=== PATIENT | female | born 1970 | race American Indian/Alaskan Native ===

== ENCOUNTER 2017-06-13 11:00 | Emergency (ER) | payer OTHER ==
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
[2017-06-13 12:26] VITALS: BP 125/80
== END 2017-06-13 12:12 | disposition home or self-care (01) ==
LOC: ED 11:00
DX: S39.012A Strain of muscle, fascia and tendon of lower back, initial encounter (principal); M79.602 Pain in left arm; F12.10 Cannabis abuse, uncomplicated; V49.49XA Driver injured in collision with other motor vehicles in traffic accident, initial encounter; Y93.89 Activity, other specified; Y92.89 Other specified places as the place of occurrence of the external cause; Y99.8 Other external cause status
CPT/HCPCS: 99282

== ENCOUNTER 2017-12-30 10:28 | Emergency (ER) | payer BC, OTHER ==
[2017-12-30 10:39] VITALS: BP 143/88
[2017-12-30 11:27] LABS: Alanine Aminotransferase 14 units/L (7-56); Albumin 3.9 g/dL (3.9-5); BUN/Creatinine Ratio 9; Blood Urea Nitrogen 6 mg/dL (7-17); Calcium 8.7 mg/dL (8.4-10.2); Hemolysis Index 0; Lipase 25 units/L (13-60)
[2017-12-30 11:31] LABS: Basophils % (Auto) 0.4 % (0.0-1.8); Eosinophils # (Auto) 0.1 K/mm3 (0.0-0.4); Eosinophils % (Auto) 1.1 % (0.0-4.3); Hematocrit 28.2 % (30.3-42.9); Hemoglobin 9.2 gm/dl (10.1-14.3); Lymphocytes # (Auto) 0.5 K/mm3 (1.2-5.4); Lymphocytes % (Auto) 6.2 % (13.4-35.0); Mean Corpuscular HGB Conc 33 % (30-34); Mean Corpuscular Volume 74 fl (79-97); Monocytes # (Auto) 0.9 K/mm3 (0.0-0.8); Monocytes % (Auto) 11.6 % (0.0-7.3); Platelet Count 387 K/mm3 (140-440); Red Blood Count 3.81 M/mm3 (3.65-5.03)
[2017-12-30 11:32] LABS: Mean Corpuscular Hemoglobin 24 pg (28-32)
[2017-12-30 12:11] LABS: Bacteria,Urine 1+ /HPF (Negative); Bilirubin,Urine NEG (Negative); Blood,Urine NEG (Negative); Color,Urine Yellow (Yellow); Mucus,Urine 1+ /HPF; Protein,Urine <15 mg/dL mg/dL (Negative); Urobilinogen,Urine < 2.0 mg/dL (<2.0)
[2017-12-30 12:17] LABS: HCG Qualitative,Urine Negative (Negative)
[2017-12-30] MEDS ORDERED: TORADOL IM ONE (13:16)
--- NOTE | 2017-12-30 13:21 | Emergency Department Report ---
ED Abdominal Pain HPI - General Chief Complaint: Nausea/Vomiting/Diarrhea Stated Complaint: VOMITING Time Seen by Provider: 12/30/17 12:46 Source: patient Mode of arrival: Ambulatory Limitations: No Limitations - History of Present Illness Initial Comments: Patient is 47 years old female with no significant past medical history. Patient presented to the ER complaining of generalized abdominal pain, crampy in nature associated with his nausea vomiting and watery diarrhea. Pain is also associated his generalized body ache and low grade fever. She denied any chest pain or shortness of breath. MD Complaint: abdominal pain -: days(s) Location: diffuse Radiation: none Migration to: no migration Severity scale (0 -10): 4 Quality: cramping Consistency: constant Associated Symptoms: nausea, vomiting, diarrhea, fever - Related Data Previous Rx's Medication Instructions Recorded Last Taken Type Cyclobenzaprine [Flexeril] 10 mg PO TID PRN #12 tablet 06/13/17 Unknown Rx Naproxen 500 mg PO Q12H PRN #30 tablet 06/13/17 Unknown Rx Allergies Allergy/AdvReac Type Severity Reaction Status Date / Time No Known Allergies Allergy Unverified 06/13/17 11:11 ED Review of Systems ROS: Stated complaint: VOMITING Other details as noted in HPI Comment: All other systems reviewed and negative Constitutional: fever, malaise. denies: chills Respiratory: denies: cough, orthopnea, shortness of breath, SOB with exertion, SOB at rest, stridor, wheezing Cardiovascular: denies: chest pain, palpitations, dyspnea on exertion, orthopnea , edema, syncope, paroxysmal nocturnal dyspnea Gastrointestinal: nausea, vomiting, diarrhea. denies: abdominal pain, hematemesis, melena, hematochezia Genitourinary: denies: urgency, dysuria, frequency, hematuria, discharge, abnormal menses Skin: denies: rash Neurological: denies: headache, weakness, numbness, paresthesias, confusion, abnormal gait ED Past Medical Hx - Past Medical History Previous Medical History?: No - Surgical History Past Surgical History?: Yes Additional Surgical History: Cervical cerclage x 2 - Social History Smoking Status: Never Smoker Substance Use Type: Alcohol, Marijuana - Medications Home Medications: Home Medications Medication Instructions Recorded Confirmed Last Taken Type Cyclobenzaprine [Flexeril] 10 mg PO TID PRN #12 tablet 06/13/17 Unknown Rx Naproxen 500 mg PO Q12H PRN #30 tablet 06/13/17 Unknown Rx ED Physical Exam - General Limitations: No Limitations General appearance: alert, in no apparent distress - Head Head exam: Present: atraumatic, normocephalic, normal inspection - Eye Eye exam: Present: normal appearance - ENT ENT exam: Present: normal exam, normal orophraynx, mucous membranes moist - Neck Neck exam: Present: normal inspection - Respiratory Respiratory exam: Present: normal lung sounds bilaterally. Absent: respiratory distress, wheezes, rales, rhonchi, stridor, accessory muscle use, decreased breath sounds, prolonged expiratory - Cardiovascular Cardiovascular Exam: Present: regular rate, normal rhythm, normal heart sounds - GI/Abdominal GI/Abdominal exam: Present: soft, normal bowel sounds. Absent: distended, tenderness, guarding, rebound, rigid, organomegaly, mass, bruit, pulsatile mass , hernia - Extremities Exam Extremities exam: Present: normal inspection, full ROM, normal capillary refill - Back Exam Back exam: Present: normal inspection, full ROM. Absent: tenderness, CVA tenderness (R), CVA tenderness (L), muscle spasm, paraspinal tenderness, vertebral tenderness - Neurological Exam Neurological exam: Present: alert, oriented X3, CN II-XII intact, normal gait - Skin Skin exam: Present: warm, intact, normal color ED Course Vital Signs 12/30/17 10:34 Temperature 99.7 F H Pulse Rate 105 H Respiratory 20 Rate Blood Pressure 143/88 O2 Sat by Pulse 96 Oximetry ED Medical Decision Making - Lab Data Result diagrams: 12/30/17 10:59 12/30/17 10:58 Critical care attestation.: If time is entered above; I have spent that time in minutes in the direct care of this critically ill patient, excluding procedure time. ED Disposition Clinical Impression: Abdominal pain, Viral syndrome Disposition: - TO HOME OR SELFCARE Is pt being admited?: No Condition: Stable Instructions: Abdominal Pain (ED), Viral Syndrome (ED) Referrals: PRIMARY CARE,MD [Primary Care Provider] - 3-5 Days
== END 2017-12-30 13:39 | disposition home or self-care (01) ==
LOC: ED 10:28
DX: B34.9 Viral infection, unspecified (principal); Z79.899 Other long term (current) drug therapy; F12.10 Cannabis abuse, uncomplicated
CPT/HCPCS: 36415; 80053; 81001; 81025; 83690; 85025; 96372; 99283; J1885

== ENCOUNTER 2019-07-08 12:21 | Emergency (ER) | payer BC, OTHER ==
[2019-07-08] MEDS ORDERED: KETAMINE 500 MG/5 ML VIAL MDV IV ONE (12:50)
[2019-07-08] MEDS ORDERED: SODIUM CHLORIDE 0.9% 1000 ML 1,000 ML IV ONE (12:53)
--- NOTE | 2019-07-08 12:53 | Emergency Department Report ---
HPI - General Chief Complaint: Extremity Injury, Upper Time Seen by Provider: 07/08/19 12:39 - HPI HPI: 49-year-old -[place] female presents to the emergency department with complaint of left shoulder pain and suspicion for a shoulder dislocation after falling down a few stairs and catching herself with her left arm. She denies hitting her head or any loss of consciousness. She does have a history of previous left shoulder dislocation but it is been greater than 10 years. Otherwise she denies any past medical history. She has not taken anything for her symptoms prior to arrival today. ED Past Medical Hx - Past Medical History Previous Medical History?: No - Surgical History Past Surgical History?: Yes Additional Surgical History: Cervical cerclage x 2 - Social History Smoking Status: Never Smoker Substance Use Type: Alcohol, Marijuana - Medications Home Medications: Home Medications Medication Instructions Recorded Confirmed Last Taken Type Cyclobenzaprine [Flexeril] 10 mg PO TID PRN #12 tablet 06/13/17 Unknown Rx Naproxen 500 mg PO Q12H PRN #30 tablet 06/13/17 Unknown Rx Ketorolac [Toradol] 10 mg PO Q6H PRN #20 tablet 12/30/17 Unknown Rx Ondansetron [Zofran Odt] 4 mg PO Q8HR PRN #14 tab.rapdis 12/30/17 Unknown Rx ED Review of Systems ROS: Stated complaint: FALL INJURY/LFT ARM PAIN Other details as noted in HPI Comment: All other systems reviewed and negative Constitutional: denies: chills, fever Respiratory: denies: shortness of breath Cardiovascular: denies: chest pain Gastrointestinal: denies: abdominal pain Musculoskeletal: arthralgia. denies: back pain Neurological: denies: headache, numbness, paresthesias Physical Exam - Physical Exam Vital Signs: Vital Signs 07/08/19 12:26 Temperature 98.3 F Pulse Rate 76 Respiratory 18 Rate Blood Pressure 171/78 [Left] O2 Sat by Pulse 98 Oximetry Physical Exam: GENERAL: The patient is well-developed well-nourished. HENT: Normocephalic. Atraumatic. Patient has moist mucous membranes. EYES: Extraocular motions are intact. NECK: Supple. Trachea is midline. CHEST/LUNGS: Clear to auscultation. There is no respiratory distress noted. HEART/CARDIOVASCULAR: Regular. There is no tachycardia. There is no murmur. ABDOMEN: Abdomen is soft, nontender. Patient has normal bowel sounds. SKIN: Skin is warm and dry. NEURO: The patient is awake, alert, and oriented. The patient is cooperative. The patient has no focal neurologic deficits. Normal speech. MUSCULOSKELETAL: Patient is holding her left upper extremity in internal rotation against her body. There is tenderness to palpation to the left shoulder. Decreased range of motion secondary to pain and suspected dislocation. Radial pulse +2 over 4 to the affected left upper extremity. ED Course Vital Signs 07/08/19 12:26 Temperature 98.3 F Pulse Rate 76 Respiratory 18 Rate Blood Pressure 171/78 [Left] O2 Sat by Pulse 98 Oximetry - Moderate Sedation Indications: fracture/dislocation redu Mallampati Airway Score: 1 Time of Last PO Intake: 21:00 (last night) Preparation: monitor worker applied, pulse oximeter, capnometry used, supplemental O2 applied, suction/airway equipment at bedside, IV secured Ketamine: IV Ketamine Dose: 50 IV Propofol Dose (mgs): 30 Complications: none Patient Tolerated Procedure: well - Orthopedic Joint Reduction Joint #1 Consent Obtained: written consent Time Out Performed: Yes Side: left Joint Reduction Location: shoulder Analgesia: moderate sedation Shoulder Technique Used (if applicable): external rotation Post-Reduction Neuro Exam: intact Post-Reduction Vascular Exam: intact Post Reduction X-Ray Obtained: Yes Post Reduction X-Ray Results: reduced Splint Applied: Yes Patient Tolerated Procedure: well ED Medical Decision Making - Radiology Data Radiology results: image reviewed interpreted by me: The initial left shoulder x-ray shows a dislocation without appears to be anterior and inferior and was read by radiology as subcoracoid. Postreduction x-ray of the left shoulder shows appropriate reduction of the left humeral head into the glenohumeral joint - Medical Decision Making Patient presents to the emergency department with a left shoulder dislocation. She is neurovascularly intact. X-ray confirms a anterior dislocation. An IV was placed and the patient was placed on cardiac monitoring. We discussed moderate sedation and reduction procedures. Patient was given ketamine and propofol and there was appropriate reduction with confirmation by a second x-ray. She is still neurovascularly intact after the procedure is completed. Patient remained in the emergency department until she had completely come out of the sedation and is back at her baseline mental status. She is in a shoulder immobilizer and has been instructed to remain there until follow-up with an orthopedist. She will return to the emergency Department with any worsening of her symptoms or any acute distress. - Differential Diagnosis dislocation, fracture, sprain, rotator cuff injury Critical Care Time: No Critical care attestation.: If time is entered above; I have spent that time in minutes in the direct care of this critically ill patient, excluding procedure time. ED Disposition Clinical Impression: Dislocation, shoulder closed Qualifiers: Encounter type: initial encounter Laterality: left Qualified Code(s): S43.005A - Unspecified dislocation of left shoulder joint, initial encounter Disposition: TO HOME OR SELFCARE Is pt being admited?: No Condition: Stable Instructions: Shoulder Dislocation (ED), Moderate Sedation (ED) Additional Instructions: Please follow-up with an orthopedist regarding your shoulder dislocation. Remain in the shoulder immobilizer until follow-up with the orthopedist. I'm giving you a referral for 2 local orthopedic groups, Dr. Devlin and [facility]. Return to the emergency Department with any worsening of your symptoms or any acute distress. Referrals: TOBY SHEPHERD MD [Primary Care Provider] - 2-3 Days MYLES DEVLIN MD [Staff Physician] - 2-3 Days [facility] [Provider Group] - 2-3 Days Time of Disposition: 14:19
--- NOTE | 2019-07-08 12:53 | XRay Report ---
LEFT SHOULDER 2 VIEWS. INDICATION / CLINICAL INFORMATION: PAIN AND DEFORMITY TO SHOULDER COMPARISON: None available. FINDINGS: BONES / JOINT(S): Subcoracoid dislocation. No significant arthritis. SOFT TISSUES: No significant abnormality. ADDITIONAL FINDINGS: None. Signer Name: Sami Aldana MD Signed: 07/08/2019 12:49 PM Workstation Name: [id number]
[2019-07-08] MEDS: PROPOFOL 200 MG/20 ML VIAL IV ONE ×2 (14:06→14:09)
[2019-07-08] MEDS ORDERED: PROPOFOL 200 MG/20 ML VIAL IV ONE (14:08)
--- NOTE | 2019-07-08 14:19 | XRay Report ---
LEFT SHOULDER, ONE VIEW INDICATION: shoulder injury. IMPRESSION: The anterior, inferior dislocation at the left glenohumeral joint has been reduced and n ow appears at anatomic in alignment. No gross fracture is appreciated. Signer Name: Fritz Fallon Jr, MD Signed: 07/08/2019 2:14 PM Workstation Name: [id number]
[2019-07-08 15:10] VITALS: BP 140/60
== END 2019-07-08 15:32 | disposition home or self-care (01) ==
LOC: ED 12:21
DX: S43.005A Unspecified dislocation of left shoulder joint, initial encounter (principal); F10.10 Alcohol abuse, uncomplicated; F12.10 Cannabis abuse, uncomplicated; Z79.899 Other long term (current) drug therapy; W10.8XXA Fall (on) (from) other stairs and steps, initial encounter; Y93.89 Activity, other specified; Y92.89 Other specified places as the place of occurrence of the external cause; Y99.8 Other external cause status
CPT/HCPCS: 23650; 73020; 73030; 94760; 96374; 96375; 99284; J2704; J7030

== ENCOUNTER 2022-04-01 10:21 | Emergency (ER) | payer SELFPAY | END 2022-04-02 17:57 | disposition left against medical advice (07) | LOC: ED 10:21 | DX: S43.006A Unspecified dislocation of unspecified shoulder joint, initial encounter (principal); Z53.21 Procedure and treatment not carried out due to patient leaving prior to being seen by health care provider; X58.XXXA Exposure to other specified factors, initial encounter; Y93.89 Activity, other specified; Y92.89 Other specified places as the place of occurrence of the external cause; Y99.8 Other external cause status ==